=== PATIENT | female | born 1970 | race Asian ===

== ENCOUNTER 2016-09-04 23:18 | Inpatient (IN) | payer MEDICAID ==
[~2016-09-04] VITALS: Ht 167.6 cm; Wt 70.8 kg
[~2016-09-04 23:18] MED LIST: ASEN10TA8 SL
[2016-09-05] MEDS ORDERED: HALOPERIDOL 5 MG TABLET PO PRN (01:45)
[2016-09-05] MEDS ORDERED: ZOLPIDEM TARTRATE 10 MG TABLET PO PRN (01:45)
[2016-09-05 02:59] VITALS: BP 100/72
[2016-09-05 03:12] VITALS: BP 100/72
[2016-09-05] MEDS ORDERED: INFLUENZA VIRUS VACCINE QVS 2016-17 (3YR+)/PF 60 MCG/0.5 ML SYRINGE IM ONE (03:15)
[2016-09-05 06:47] LABS: GLUCOSE,POINT OF CARE 110 MG/DL (70-110)
[2016-09-05 08:53] VITALS: BP 136/76
[2016-09-05] MEDS: LORazepam 2 MG TABLET PO PRN ×2 (08:54→19:05)
[2016-09-05] MEDS ORDERED: PETROLATUM,WHITE 71 GM JELLY TP PRN (09:30)
[2016-09-05] MEDS ORDERED: ACETAMINOPHEN 325 MG TABLET PO PRN (09:30)
[2016-09-05] MEDS ORDERED: CloNIDine HCL 0.1 MG TABLET PO PRN (09:30)
[2016-09-05] MEDS ORDERED: BACITRACIN 28.4 GM OINTMENT TP PRN (09:30)
[2016-09-05] MEDS ORDERED: ALBUTEROL SULFATE HFA 90 MCG/PUFF 8 GM INHALER IH PRN (09:30)
[2016-09-05] MEDS ORDERED: ONDANSETRON HCL 4 MG TABLET PO PRN (09:30)
[2016-09-05] MEDS ORDERED: LOPERAMIDE HCL 2 MG CAPSULE PO PRN (09:30)
[2016-09-05 16:40] VITALS: BP 102/72
[2016-09-06 03:21] VITALS: BP 112/71
[2016-09-06 07:01] VITALS: BP 112/71
[2016-09-06] MEDS: ASENAPINE 10 MG SUBLINGUAL TABLET SL SCH ×2 (08:16→16:12)
[2016-09-06 08:26] VITALS: BP 104/62
[2016-09-06 08:29] LABS: BASOPHILS % (AUTO) 0.3 % (0.0-2.0); EOSINOPHILS % (AUTO) 1.6 % (1.0-6.0); HEMATOCRIT 42.5 % (36-46); HEMOGLOBIN 13.9 g/dL (12.0-16.0); LYMPHOCYTES # (AUTO) 2.9 K/uL (1.0-4.8); LYMPHOCYTES % (AUTO) 27.8 % (22.0-44.0); MEAN CORPUSCULAR HEMOGLOBIN 28.5 pg (26.0-34.0); MEAN CORPUSCULAR HGB CONC 32.7 G/dL (31.0-37.0); MEAN CORPUSCULAR VOLUME 87 fL (80-100); MONOCYTES # (AUTO) 0.5 K/uL (0.1-1.0); MONOCYTES % (AUTO) 4.6 % (2.0-9.0); NEUTROPHILS # (AUTO) 6.9 K/uL (1.8-7.7); NEUTROPHILS % (AUTO) 65.7 % (40.0-70.0); PLATELET COUNT (AUTO) 469 K/uL (150-450); RED BLOOD CELL COUNT(AUTO) 4.88 MIL/uL (4.00-5.20); RED CELL DISTRIBUTION WIDTH 12.7 % (11.5-14.5); WHITE BLOOD COUNT (AUTO) 10.5 K/uL (4.5-11.0)
[2016-09-06 08:51] LABS: HEMOGLOBIN A1C 6.1 % (4.5-6.2)
[2016-09-06 08:57] LABS: ALANINE AMINOTRANSFERASE 21 U/L (12-78); ALBUMIN 3.7 g/dL (3.4-5.0); ANION GAP 8 mmol/L (8-16); ASPARTATE AMINOTRANSFERASE 20 U/L (15-37); BILIRUBIN,TOTAL 0.3 mg/dL (0.1-1.0); CALCIUM, TOTAL 10.1 mg/dL (8.8-10.5); CARBON DIOXIDE 28 mmol/L (22-29); CHLORIDE 104 mmol/L (98-107); CREATININE 0.68 mg/dL (0.60-1.30); GLOMERULAR FILTR. RATE CALC > 60 mL/min (>60); POTASSIUM 4.5 mmol/L (3.5-5.1); SODIUM SERUM 140 mmol/L (136-145); THYROID STIMULATING HORMONE 0.36 uIU/mL (0.36-3.74); TOTAL PROTEIN, SERUM 7.6 g/dL (6.4-8.2); UREA NITROGEN, BLOOD 17 mg/dL (7-18)
[2016-09-06 16:16] VITALS: BP 117/68
[2016-09-06] MEDS: LORazepam 2 MG TABLET PO PRN (16:23)
[2016-09-07 01:20] VITALS: BP 116/72
[2016-09-07] MEDS: MAG HYDROX/AL HYDROX/SIMETH ES 30 ML SUSPENSION UDCUP PO PRN (05:38)
[2016-09-07] MEDS: ASENAPINE 10 MG SUBLINGUAL TABLET SL SCH ×2 (08:09→17:30)
[2016-09-07 08:48] VITALS: BP 113/72
[2016-09-07] MEDS: LORazepam 2 MG TABLET PO PRN (10:38)
[2016-09-07 16:16] VITALS: BP 113/69
[2016-09-08 03:39] VITALS: BP 105/68
[2016-09-08] MEDS: MAG HYDROX/AL HYDROX/SIMETH ES 30 ML SUSPENSION UDCUP PO PRN (04:26)
[2016-09-08] MEDS: ASENAPINE 10 MG SUBLINGUAL TABLET SL SCH ×2 (08:02→17:40)
[2016-09-08] MEDS: LORazepam 2 MG TABLET PO PRN ×2 (08:35→20:04)
[2016-09-08 08:38] VITALS: BP 126/87
[2016-09-08] MEDS ORDERED: DiphenhydrAMINE HCL 50 MG/ML VIAL IM ONE (12:00)
[2016-09-08] MEDS ORDERED: LORazepam 2 MG/ML VIAL IM ONE (12:00)
[2016-09-08] MEDS ORDERED: HALOPERIDOL LACTATE 5 MG/ML VIAL IM ONE (12:00)
[2016-09-08 13:00] VITALS: BP 103/63
[2016-09-08 16:14] VITALS: BP 127/71
[2016-09-08] MEDS: DIVALPROEX SODIUM 500 MG ER TABLET PO SCH (20:08)
[2016-09-09 01:28] VITALS: BP 111/70
[2016-09-09 08:38] VITALS: BP 105/72
[2016-09-09] MEDS: ASENAPINE 10 MG SUBLINGUAL TABLET SL SCH ×2 (08:54→16:37)
[2016-09-09] MEDS: LORazepam 2 MG TABLET PO PRN ×2 (12:42→20:33)
[2016-09-09 16:00] VITALS: BP 102/68
[2016-09-09] MEDS: DIVALPROEX SODIUM 500 MG ER TABLET PO SCH (20:01)
[2016-09-10 05:47] VITALS: BP 110/70
[2016-09-10] MEDS: ASENAPINE 10 MG SUBLINGUAL TABLET SL SCH ×2 (08:09→16:34)
[2016-09-10] MEDS: LORazepam 2 MG TABLET PO PRN ×2 (08:09→23:07)
[2016-09-10 08:35] VITALS: BP 100/61
[2016-09-10 16:00] VITALS: BP 123/81
[2016-09-10] MEDS: DIVALPROEX SODIUM 500 MG ER TABLET PO SCH (20:37)
[2016-09-11] VITALS: BP 118/79
[2016-09-11] MEDS: IBUPROFEN 600 MG TABLET PO PRN (00:02)
[2016-09-11] MEDS: ASENAPINE 10 MG SUBLINGUAL TABLET SL SCH ×2 (08:22→16:07)
[2016-09-11] MEDS: LORazepam 2 MG TABLET PO PRN (08:22)
[2016-09-11 08:49] VITALS: BP 132/82
[2016-09-11 16:10] VITALS: BP 124/81
[2016-09-11] MEDS: DIVALPROEX SODIUM 500 MG ER TABLET PO SCH (20:12)
[2016-09-12] MEDS: MAG HYDROX/AL HYDROX/SIMETH ES 30 ML SUSPENSION UDCUP PO PRN (03:48)
[2016-09-12 06:57] VITALS: BP 125/76
[2016-09-12 08:20] LABS: BASOPHILS # (AUTO) 0.04 K/uL (0.00-0.20); BASOPHILS % (AUTO) 0.3 % (0.0-2.0); EOSINOPHILS # (AUTO) 0.14 K/uL (0.00-0.70); EOSINOPHILS % (AUTO) 1.07 % (1.0-6.0); HEMATOCRIT 41.5 % (36-46); HEMOGLOBIN 13.8 g/dL (12.0-16.0); LYMPHOCYTES # (AUTO) 3.3 K/uL (1.0-4.8); LYMPHOCYTES % (AUTO) 25.6 % (22.0-44.0); MEAN CORPUSCULAR HEMOGLOBIN 28.6 pg (26.0-34.0); MEAN CORPUSCULAR HGB CONC 33.1 G/dL (31.0-37.0); MEAN CORPUSCULAR VOLUME 86 fL (80-100); MONOCYTES # (AUTO) 0.6 K/uL (0.1-1.0); MONOCYTES % (AUTO) 4.3 % (2.0-9.0); NEUTROPHILS # (AUTO) 8.9 K/uL (1.8-7.7); NEUTROPHILS % (AUTO) 68.8 % (40.0-70.0); PLATELET COUNT (AUTO) 453 K/uL (150-450); RED BLOOD CELL COUNT(AUTO) 4.81 MIL/uL (4.00-5.20); RED CELL DISTRIBUTION WIDTH 12.5 % (11.5-14.5)
[2016-09-12 08:34] LABS: ALANINE AMINOTRANSFERASE 33 U/L (12-78); ALBUMIN 4.1 g/dL (3.4-5.0); ANION GAP 12 mmol/L (8-16); ASPARTATE AMINOTRANSFERASE 25 U/L (15-37); BILIRUBIN,TOTAL 0.4 mg/dL (0.1-1.0); CALCIUM, TOTAL 10.1 mg/dL (8.8-10.5); CARBON DIOXIDE 27 mmol/L (22-29); CHLORIDE 100 mmol/L (98-107); CREATININE 0.61 mg/dL (0.60-1.30); GLOMERULAR FILTR. RATE CALC > 60 mL/min (>60); POTASSIUM 4.2 mmol/L (3.5-5.1); SODIUM SERUM 139 mmol/L (136-145); TOTAL PROTEIN, SERUM 7.8 g/dL (6.4-8.2); UREA NITROGEN, BLOOD 17 mg/dL (7-18); VALPROIC ACID 33 mcg/mL (50-100)
[2016-09-12] MEDS: ASENAPINE 10 MG SUBLINGUAL TABLET SL SCH ×2 (08:34→16:01)
[2016-09-12] MEDS: LORazepam 2 MG TABLET PO PRN ×2 (08:34→20:54)
[2016-09-12 08:57] VITALS: BP 143/88
[2016-09-12 16:00] VITALS: BP 125/90
[2016-09-12] MEDS: BENZOCAINE/MENTHOL LOZENGE MM PRN (17:26)
[2016-09-13 07:15] VITALS: BP 118/88
[2016-09-13] MEDS: BENZOCAINE/MENTHOL LOZENGE MM PRN (07:19)
[2016-09-13] MEDS: ASENAPINE 10 MG SUBLINGUAL TABLET SL SCH ×2 (08:56→16:55)
[2016-09-13] MEDS: LORazepam 2 MG TABLET PO PRN ×2 (08:56→16:55)
[2016-09-13 08:57] VITALS: BP 128/71
[2016-09-13 16:25] VITALS: BP 100/70
[2016-09-14 03:23] VITALS: BP 104/76
[2016-09-14] MEDS: BENZOCAINE/MENTHOL LOZENGE MM PRN (04:43)
[2016-09-14 07:58] LABS: BASOPHILS % (AUTO) 0.4 % (0.0-2.0); EOSINOPHILS % (AUTO) 1.5 % (1.0-6.0); HEMATOCRIT 43.1 % (36-46); HEMOGLOBIN 14.1 g/dL (12.0-16.0); LYMPHOCYTES # (AUTO) 3.5 K/uL (1.0-4.8); LYMPHOCYTES % (AUTO) 28.1 % (22.0-44.0); MEAN CORPUSCULAR HEMOGLOBIN 28.6 pg (26.0-34.0); MEAN CORPUSCULAR HGB CONC 32.8 G/dL (31.0-37.0); MEAN CORPUSCULAR VOLUME 87 fL (80-100); MONOCYTES # (AUTO) 0.7 K/uL (0.1-1.0); MONOCYTES % (AUTO) 5.5 % (2.0-9.0); NEUTROPHILS # (AUTO) 8.1 K/uL (1.8-7.7); NEUTROPHILS % (AUTO) 64.5 % (40.0-70.0); PLATELET COUNT (AUTO) 448 K/uL (150-450); RED BLOOD CELL COUNT(AUTO) 4.94 MIL/uL (4.00-5.20); WHITE BLOOD COUNT (AUTO) 12.5 K/uL (4.5-11.0)
[2016-09-14 08:13] LABS: ALANINE AMINOTRANSFERASE 29 U/L (12-78); ALBUMIN 3.9 g/dL (3.4-5.0); ANION GAP 8 mmol/L (8-16); ASPARTATE AMINOTRANSFERASE 25 U/L (15-37); BILIRUBIN,TOTAL 0.6 mg/dL (0.1-1.0); CALCIUM, TOTAL 9.9 mg/dL (8.8-10.5); CARBON DIOXIDE 30 mmol/L (22-29); CHLORIDE 102 mmol/L (98-107); CREATININE 0.63 mg/dL (0.60-1.30); GLOMERULAR FILTR. RATE CALC > 60 mL/min (>60); POTASSIUM 4.9 mmol/L (3.5-5.1); SODIUM SERUM 140 mmol/L (136-145); TOTAL PROTEIN, SERUM 7.8 g/dL (6.4-8.2); UREA NITROGEN, BLOOD 18 mg/dL (7-18)
[2016-09-14] MEDS: ASENAPINE 10 MG SUBLINGUAL TABLET SL SCH ×2 (10:03→16:44)
[2016-09-14] MEDS: LORazepam 2 MG TABLET PO PRN ×2 (10:03→16:44)
[2016-09-14 10:16] VITALS: BP 119/77
[2016-09-14 16:27] VITALS: BP 120/86
[2016-09-14] MEDS ORDERED: DIVALPROEX SODIUM 500 MG ER TABLET PO SCH (21:00)
[2016-09-15 04:57] VITALS: BP 116/82
[2016-09-15] MEDS: BENZOCAINE/MENTHOL LOZENGE MM PRN (05:20)
[2016-09-15 08:24] VITALS: BP 110/79
[2016-09-15] MEDS: ASENAPINE 10 MG SUBLINGUAL TABLET SL SCH ×2 (08:27→16:13)
[2016-09-15] MEDS: LORazepam 2 MG TABLET PO PRN ×2 (08:27→20:19)
[2016-09-15 16:13] VITALS: BP 116/73
[2016-09-15] MEDS ORDERED: DIVALPROEX SODIUM 500 MG ER TABLET PO SCH (21:00)
[2016-09-16 03:02] VITALS: BP 137/88
[2016-09-16 08:12] VITALS: BP 132/80
[2016-09-16] MEDS: ASENAPINE 10 MG SUBLINGUAL TABLET SL SCH ×2 (08:25→16:27)
[2016-09-16] MEDS: LORazepam 2 MG TABLET PO PRN ×2 (08:25→18:51)
[2016-09-16 08:28] LABS: HEMATOCRIT 41.9 % (36-46); HEMOGLOBIN 13.7 g/dL (12.0-16.0); MEAN CORPUSCULAR HEMOGLOBIN 28.4 pg (26.0-34.0); MEAN CORPUSCULAR HGB CONC 32.7 G/dL (31.0-37.0); MEAN CORPUSCULAR VOLUME 87 fL (80-100); PLATELET COUNT (AUTO) 432 K/uL (150-450); RED BLOOD CELL COUNT(AUTO) 4.83 MIL/uL (4.00-5.20); WHITE BLOOD COUNT (AUTO) 11.6 K/uL (4.5-11.0)
[2016-09-16 08:48] LABS: ANION GAP 7 mmol/L (8-16); CALCIUM, TOTAL 9.9 mg/dL (8.8-10.5); CARBON DIOXIDE 29 mmol/L (22-29); CHLORIDE 103 mmol/L (98-107); CREATININE 0.58 mg/dL (0.60-1.30); GLOMERULAR FILTR. RATE CALC > 60 mL/min (>60); POTASSIUM 4.3 mmol/L (3.5-5.1); SODIUM SERUM 139 mmol/L (136-145); UREA NITROGEN, BLOOD 16 mg/dL (7-18)
[2016-09-16 09:17] LABS: VALPROIC ACID < 3 mcg/mL (50-100)
[2016-09-16 09:48] LABS: BAND NEUTROPHILS % (MANUAL) 1 % (1-5); LYMPHOCYTES % (MANUAL) 22 % (22-44); TOTAL CELLS COUNTED 100
[2016-09-16 09:49] LABS: RBC MORPHOLOGY COMMENT NORMAL RBC MORPH
[2016-09-16 16:33] VITALS: BP 134/82
[2016-09-16] MEDS: VALPROIC ACID 250 MG/5 ML SYRUP UDCUP PO SCH (21:00)
[2016-09-16] MEDS: BENZOCAINE/MENTHOL LOZENGE MM PRN (21:17)
[2016-09-17 03:20] VITALS: BP 139/87
[2016-09-17] MEDS: BENZOCAINE/MENTHOL LOZENGE MM PRN (03:28)
[2016-09-17] MEDS: LORazepam 2 MG TABLET PO PRN ×2 (08:04→18:44)
[2016-09-17] MEDS: ASENAPINE 10 MG SUBLINGUAL TABLET SL SCH ×2 (08:04→16:42)
[2016-09-17 08:43] VITALS: BP 130/79
[2016-09-17 17:04] VITALS: BP 125/83
[2016-09-17] MEDS: VALPROIC ACID 250 MG/5 ML SYRUP UDCUP PO SCH (21:00)
[2016-09-18 05:55] VITALS: BP 116/79
[2016-09-18] MEDS: LORazepam 2 MG TABLET PO PRN ×2 (08:10→16:57)
[2016-09-18] MEDS: ASENAPINE 10 MG SUBLINGUAL TABLET SL SCH ×2 (08:10→16:29)
[2016-09-18 08:19] VITALS: BP 151/88
[2016-09-18 16:28] VITALS: BP 106/72
[2016-09-18 18:20] VITALS: BP 125/77
[2016-09-18] MEDS: IBUPROFEN 600 MG TABLET PO PRN (18:20)
[2016-09-18] MEDS: VALPROIC ACID 250 MG/5 ML SYRUP UDCUP PO SCH (21:00)
[2016-09-19] MEDS: BENZOCAINE/MENTHOL LOZENGE MM PRN (02:54)
[2016-09-19 03:03] VITALS: BP 120/89
[2016-09-19] MEDS: MAG HYDROX/AL HYDROX/SIMETH ES 30 ML SUSPENSION UDCUP PO PRN (03:26)
[2016-09-19] MEDS: LORazepam 2 MG TABLET PO PRN ×3 (08:32→22:37)
[2016-09-19] MEDS: ASENAPINE 10 MG SUBLINGUAL TABLET SL SCH ×2 (08:38→16:29)
[2016-09-19 16:00] VITALS: BP 137/98
[2016-09-19] MEDS ORDERED: LORazepam 2 MG/ML VIAL IM PRN (19:30)
[2016-09-20 00:01] VITALS: BP 130/78
[2016-09-20] MEDS: IBUPROFEN 600 MG TABLET PO PRN ×2 (00:06→21:31)
[2016-09-20 08:30] VITALS: BP 124/74
[2016-09-20] MEDS: LORazepam 1 MG TABLET PO SCH ×3 (08:40→17:54)
[2016-09-20] MEDS: ASENAPINE 10 MG SUBLINGUAL TABLET SL SCH ×2 (08:40→16:35)
[2016-09-20 21:30] VITALS: BP 128/68
[2016-09-20] MEDS: LORazepam 2 MG TABLET PO PRN (21:54)
[2016-09-21] MEDS: BENZOCAINE/MENTHOL LOZENGE MM PRN (05:55)
[2016-09-21 06:10] VITALS: BP 124/78
[2016-09-21] MEDS: LORazepam 1 MG TABLET PO SCH ×3 (08:05→17:02)
[2016-09-21] MEDS: ASENAPINE 10 MG SUBLINGUAL TABLET SL SCH ×2 (08:05→16:22)
[2016-09-21 08:35] VITALS: BP 130/90
[2016-09-21 15:55] VITALS: BP 128/66
[2016-09-21] MEDS: IBUPROFEN 600 MG TABLET PO PRN (15:58)
[2016-09-21 16:25] VITALS: BP 114/75
[2016-09-22] MEDS: BENZOCAINE/MENTHOL LOZENGE MM PRN ×2 (01:53→16:48)
[2016-09-22 01:54] VITALS: BP 137/76
[2016-09-22] MEDS: MAGNESIUM HYDROXIDE SUSPENSION 30 ML UDCUP PO PRN (06:04)
[2016-09-22] MEDS: ASENAPINE 10 MG SUBLINGUAL TABLET SL SCH ×2 (08:15→16:10)
[2016-09-22] MEDS: LORazepam 1 MG TABLET PO SCH ×3 (08:15→16:19)
[2016-09-22 09:02] VITALS: BP 133/90
[2016-09-22 16:10] VITALS: BP 115/79
[2016-09-22] MEDS: IBUPROFEN 600 MG TABLET PO PRN (16:10)
[2016-09-22] MEDS: LORazepam 2 MG TABLET PO PRN (21:00)
[2016-09-23 04:13] VITALS: BP 109/71
[2016-09-23] MEDS: MAG HYDROX/AL HYDROX/SIMETH ES 30 ML SUSPENSION UDCUP PO PRN (05:40)
[2016-09-23 08:14] VITALS: BP 112/65
[2016-09-23] MEDS: LORazepam 1 MG TABLET PO SCH ×3 (08:44→16:33)
[2016-09-23] MEDS: ASENAPINE 10 MG SUBLINGUAL TABLET SL SCH ×2 (08:44→16:33)
[2016-09-23] MEDS: LORazepam 2 MG TABLET PO PRN (10:08)
[2016-09-23] MEDS: IBUPROFEN 600 MG TABLET PO PRN (10:10)
[2016-09-23 16:16] VITALS: BP 136/80
[2016-09-24] MEDS: BENZOCAINE/MENTHOL LOZENGE MM PRN (00:12)
[2016-09-24 02:31] VITALS: BP 116/71
[2016-09-24 08:23] VITALS: BP 128/77
[2016-09-24] MEDS: ASENAPINE 10 MG SUBLINGUAL TABLET SL SCH ×2 (09:00→16:35)
[2016-09-24] MEDS: LORazepam 1 MG TABLET PO SCH ×3 (09:01→16:35)
[2016-09-24] MEDS ORDERED: LORA1TAB3 PO (10:54)
[2016-09-24 16:00] VITALS: BP 118/75
[2016-09-25] MEDS: BENZOCAINE/MENTHOL LOZENGE MM PRN ×2 (04:29→23:15)
[2016-09-25 05:20] VITALS: BP 119/77
[2016-09-25] MEDS: LORazepam 1 MG TABLET PO SCH ×3 (08:28→16:19)
[2016-09-25] MEDS: ASENAPINE 10 MG SUBLINGUAL TABLET SL SCH ×2 (08:28→16:19)
[2016-09-25 08:38] VITALS: BP 126/93
[2016-09-25 16:09] VITALS: BP 118/80
[2016-09-25] MEDS: MAG HYDROX/AL HYDROX/SIMETH ES 30 ML SUSPENSION UDCUP PO PRN (22:48)
[2016-09-26 01:49] VITALS: BP 149/68
[2016-09-26] MEDS: LORazepam 2 MG TABLET PO PRN (01:49)
[2016-09-26] MEDS: ASENAPINE 10 MG SUBLINGUAL TABLET SL SCH ×2 (08:06→16:03)
[2016-09-26] MEDS: LORazepam 1 MG TABLET PO SCH ×3 (08:06→16:13)
[2016-09-26 08:30] VITALS: BP 115/77
[2016-09-26 16:16] VITALS: BP 114/72
[2016-09-26] MEDS: IBUPROFEN 600 MG TABLET PO PRN (20:37)
[2016-09-26 20:38] VITALS: BP 127/80
[2016-09-26] MEDS ORDERED: LORazepam 2 MG/ML VIAL IM ONE (21:00)
[2016-09-26] MEDS ORDERED: HALOPERIDOL LACTATE 5 MG/ML VIAL IM ONE (21:00)
[2016-09-26] MEDS ORDERED: DiphenhydrAMINE HCL 50 MG/ML VIAL IM ONE (21:00)
[2016-09-27] MEDS: BENZOCAINE/MENTHOL LOZENGE MM PRN ×2 (06:36→14:32)
[2016-09-27] MEDS: LORazepam 1 MG TABLET PO SCH ×3 (08:29→16:33)
[2016-09-27] MEDS: ASENAPINE 10 MG SUBLINGUAL TABLET SL SCH ×2 (08:29→16:34)
[2016-09-27 16:08] VITALS: BP 112/75
[2016-09-27 21:44] VITALS: BP 126/64
[2016-09-27] MEDS: IBUPROFEN 600 MG TABLET PO PRN (21:45)
[2016-09-28] MEDS: MAG HYDROX/AL HYDROX/SIMETH ES 30 ML SUSPENSION UDCUP PO PRN (03:41)
[2016-09-28 03:49] VITALS: BP 107/73
[2016-09-28] MEDS: ASENAPINE 10 MG SUBLINGUAL TABLET SL SCH ×2 (08:01→16:10)
[2016-09-28] MEDS: LORazepam 1 MG TABLET PO SCH ×3 (08:01→16:10)
[2016-09-28 14:15] VITALS: BP 120/74
[2016-09-28] MEDS: IBUPROFEN 600 MG TABLET PO PRN (14:15)
[2016-09-28 16:31] VITALS: BP 126/66
[2016-09-28] MEDS: LORazepam 2 MG TABLET PO PRN (17:15)
[2016-09-29 04:28] VITALS: BP 101/66
[2016-09-29 08:30] VITALS: BP 131/73
[2016-09-29] MEDS: LORazepam 2 MG TABLET PO PRN (08:58)
[2016-09-29] MEDS: LORazepam 1 MG TABLET PO SCH ×3 (10:06→17:10)
[2016-09-29] MEDS: ASENAPINE 10 MG SUBLINGUAL TABLET SL SCH ×2 (10:06→17:10)
[2016-09-29 16:00] VITALS: BP 127/71
[2016-09-30] MEDS: BENZOCAINE/MENTHOL LOZENGE MM PRN (01:53)
[2016-09-30 01:54] VITALS: BP 103/68
[2016-09-30] MEDS: MAG HYDROX/AL HYDROX/SIMETH ES 30 ML SUSPENSION UDCUP PO PRN (05:18)
[2016-09-30] MEDS: LORazepam 1 MG TABLET PO SCH ×3 (08:30→16:28)
[2016-09-30] MEDS: ASENAPINE 10 MG SUBLINGUAL TABLET SL SCH ×2 (08:30→16:28)
[2016-09-30 08:39] VITALS: BP 118/77
[2016-09-30 16:16] VITALS: BP 125/79
[2016-09-30] MEDS: IBUPROFEN 600 MG TABLET PO PRN (21:13)
[2016-10-01] MEDS ORDERED: DiphenhydrAMINE HCL 50 MG/ML VIAL IM ONE (02:00)
[2016-10-01] MEDS ORDERED: LORazepam 2 MG/ML VIAL IM ONE (02:00)
[2016-10-01] MEDS ORDERED: HALOPERIDOL LACTATE 5 MG/ML VIAL IM ONE (02:00)
[2016-10-01] MEDS: BENZOCAINE/MENTHOL LOZENGE MM PRN (07:08)
[2016-10-01] MEDS: LORazepam 1 MG TABLET PO SCH ×3 (08:26→16:38)
[2016-10-01] MEDS: ASENAPINE 10 MG SUBLINGUAL TABLET SL SCH ×2 (08:26→16:38)
[2016-10-01 10:00] VITALS: BP 118/72
[2016-10-01 16:10] VITALS: BP 118/74
[2016-10-01] MEDS: LamoTRIgine 25 MG TABLET PO SCH (16:38)
[2016-10-02 00:50] VITALS: BP 105/70
[2016-10-02] MEDS: BENZOCAINE/MENTHOL LOZENGE MM PRN ×2 (02:56→18:06)
[2016-10-02] MEDS: ASENAPINE 10 MG SUBLINGUAL TABLET SL SCH ×2 (08:08→16:16)
[2016-10-02] MEDS: LamoTRIgine 25 MG TABLET PO SCH (08:08)
[2016-10-02] MEDS: LORazepam 1 MG TABLET PO SCH ×3 (08:08→16:16)
[2016-10-02 08:39] VITALS: BP 122/80
[2016-10-02 16:25] VITALS: BP 111/74
[2016-10-03] MEDS: IBUPROFEN 600 MG TABLET PO PRN ×2 (00:20→16:02)
[2016-10-03 00:21] VITALS: BP 106/64
[2016-10-03] MEDS: MAG HYDROX/AL HYDROX/SIMETH ES 30 ML SUSPENSION UDCUP PO PRN (01:26)
[2016-10-03] MEDS: MAGNESIUM HYDROXIDE SUSPENSION 30 ML UDCUP PO PRN (02:30)
[2016-10-03 08:19] VITALS: BP 136/91
[2016-10-03] MEDS: LamoTRIgine 25 MG TABLET PO SCH (09:59)
[2016-10-03] MEDS: ASENAPINE 10 MG SUBLINGUAL TABLET SL SCH ×2 (09:59→16:02)
[2016-10-03] MEDS: LORazepam 1 MG TABLET PO SCH ×3 (09:59→16:02)
[2016-10-03 16:02] VITALS: BP 120/78
[2016-10-03 16:03] VITALS: BP 109/75
[2016-10-03] MEDS: LORazepam 2 MG TABLET PO PRN (16:46)
[2016-10-04] MEDS: BENZOCAINE/MENTHOL LOZENGE MM PRN (02:55)
[2016-10-04] MEDS: MAG HYDROX/AL HYDROX/SIMETH ES 30 ML SUSPENSION UDCUP PO PRN (03:09)
[2016-10-04 06:00] VITALS: BP 109/66
[2016-10-04 08:17] VITALS: BP 123/80
[2016-10-04] MEDS: LamoTRIgine 25 MG TABLET PO SCH (08:24)
[2016-10-04] MEDS: ASENAPINE 10 MG SUBLINGUAL TABLET SL SCH ×2 (08:24→16:24)
[2016-10-04] MEDS: LORazepam 1 MG TABLET PO SCH ×3 (08:24→16:47)
[2016-10-04 16:17] VITALS: BP 126/71
[2016-10-05 00:35] VITALS: BP 120/73
[2016-10-05] MEDS: ASENAPINE 10 MG SUBLINGUAL TABLET SL SCH ×2 (08:29→16:05)
[2016-10-05] MEDS: LamoTRIgine 25 MG TABLET PO SCH (08:29)
[2016-10-05] MEDS: LORazepam 1 MG TABLET PO SCH ×3 (08:29→16:53)
[2016-10-05 08:31] VITALS: BP 119/70
[2016-10-05 16:10] VITALS: BP 121/73
[2016-10-05] MEDS: LORazepam 2 MG TABLET PO PRN (20:17)
[2016-10-06 04:18] VITALS: BP 110/65
[2016-10-06] MEDS: LamoTRIgine 25 MG TABLET PO SCH (08:17)
[2016-10-06] MEDS: ASENAPINE 10 MG SUBLINGUAL TABLET SL SCH ×2 (08:17→16:18)
[2016-10-06] MEDS: LORazepam 1 MG TABLET PO SCH ×3 (08:17→16:18)
[2016-10-06 08:26] VITALS: BP 111/65
[2016-10-06 16:00] VITALS: BP 104/68
[2016-10-06] MEDS: DICLOFENAC SODIUM 1% 100 GM GEL [2GM] TP SCH (16:18)
[2016-10-07] MEDS: BENZOCAINE/MENTHOL LOZENGE MM PRN ×2 (01:38→02:05)
[2016-10-07 07:25] VITALS: BP 110/72
[2016-10-07 08:17] VITALS: BP 126/84
[2016-10-07] MEDS: ASENAPINE 10 MG SUBLINGUAL TABLET SL SCH ×2 (08:40→16:38)
[2016-10-07] MEDS: LamoTRIgine 100 MG TABLET PO SCH (08:40)
[2016-10-07] MEDS: DICLOFENAC SODIUM 1% 100 GM GEL [2GM] TP SCH ×2 (08:40→16:38)
[2016-10-07] MEDS: LORazepam 1 MG TABLET PO SCH ×3 (08:41→16:38)
[2016-10-07 16:24] VITALS: BP 130/78
[2016-10-08] MEDS: BENZOCAINE/MENTHOL LOZENGE MM PRN (00:32)
[2016-10-08] MEDS: IBUPROFEN 600 MG TABLET PO PRN (01:12)
[2016-10-08 01:13] VITALS: BP 133/61
[2016-10-08 08:00] VITALS: BP 134/79
[2016-10-08] MEDS: LORazepam 1 MG TABLET PO SCH ×3 (08:31→16:18)
[2016-10-08] MEDS: DICLOFENAC SODIUM 1% 100 GM GEL [2GM] TP SCH ×2 (08:31→16:51)
[2016-10-08] MEDS: LamoTRIgine 100 MG TABLET PO SCH (08:31)
[2016-10-08] MEDS: ASENAPINE 10 MG SUBLINGUAL TABLET SL SCH ×2 (08:32→16:18)
[2016-10-08 16:02] VITALS: BP 100/66
[2016-10-08 16:24] VITALS: BP 116/68
[2016-10-08 17:25] VITALS: BP 115/65
[2016-10-08] MEDS: LORazepam 2 MG TABLET PO PRN (17:26)
[2016-10-09 06:39] VITALS: BP 110/72
[2016-10-09] MEDS: DICLOFENAC SODIUM 1% 100 GM GEL [2GM] TP SCH ×2 (08:18→17:19)
[2016-10-09] MEDS: LORazepam 1 MG TABLET PO SCH ×3 (08:18→17:18)
[2016-10-09] MEDS: LamoTRIgine 100 MG TABLET PO SCH (08:18)
[2016-10-09] MEDS: ASENAPINE 10 MG SUBLINGUAL TABLET SL SCH ×2 (08:18→17:18)
[2016-10-09 08:55] VITALS: BP 107/74
[2016-10-09 16:22] VITALS: BP 110/69
[2016-10-10] MEDS: MAG HYDROX/AL HYDROX/SIMETH ES 30 ML SUSPENSION UDCUP PO PRN (01:59)
[2016-10-10 05:22] VITALS: BP 106/73
[2016-10-10 08:38] VITALS: BP 119/74
[2016-10-10] MEDS: ASENAPINE 10 MG SUBLINGUAL TABLET SL SCH ×2 (09:45→16:04)
[2016-10-10] MEDS: DICLOFENAC SODIUM 1% 100 GM GEL [2GM] TP SCH ×2 (09:46→16:04)
[2016-10-10] MEDS: LORazepam 1 MG TABLET PO SCH ×3 (09:46→17:21)
[2016-10-10] MEDS: LamoTRIgine 100 MG TABLET PO SCH (09:46)
[2016-10-10 16:39] VITALS: BP 124/72
[2016-10-11 01:41] VITALS: BP 118/78
[2016-10-11] MEDS: MAG HYDROX/AL HYDROX/SIMETH ES 30 ML SUSPENSION UDCUP PO PRN (02:13)
[2016-10-11] MEDS: LORazepam 2 MG TABLET PO PRN (06:40)
[2016-10-11 08:11] VITALS: BP 126/76
[2016-10-11] MEDS: DICLOFENAC SODIUM 1% 100 GM GEL [2GM] TP SCH ×2 (09:35→16:46)
[2016-10-11] MEDS: ASENAPINE 10 MG SUBLINGUAL TABLET SL SCH ×2 (09:35→16:05)
[2016-10-11] MEDS: LORazepam 1 MG TABLET PO SCH ×3 (09:35→16:59)
[2016-10-11] MEDS: LamoTRIgine 100 MG TABLET PO SCH (09:35)
[2016-10-11 16:16] VITALS: BP 110/64
[2016-10-12] MEDS: IBUPROFEN 600 MG TABLET PO PRN (01:34)
[2016-10-12] MEDS: BENZOCAINE/MENTHOL LOZENGE MM PRN ×2 (05:28→14:36)
[2016-10-12] MEDS: LamoTRIgine 100 MG TABLET PO SCH (08:10)
[2016-10-12] MEDS: ASENAPINE 10 MG SUBLINGUAL TABLET SL SCH ×2 (08:10→16:02)
[2016-10-12] MEDS: LORazepam 1 MG TABLET PO SCH ×3 (08:11→16:02)
[2016-10-12] MEDS: DICLOFENAC SODIUM 1% 100 GM GEL [2GM] TP SCH ×2 (08:11→16:23)
[2016-10-12 08:17] VITALS: BP 113/63
[2016-10-12 16:00] VITALS: BP 113/82
[2016-10-13] MEDS: LORazepam 1 MG TABLET PO SCH ×3 (08:15→17:01)
[2016-10-13] MEDS: ASENAPINE 10 MG SUBLINGUAL TABLET SL SCH ×2 (08:15→16:04)
[2016-10-13] MEDS: LamoTRIgine 100 MG TABLET PO SCH (08:15)
[2016-10-13] MEDS: DICLOFENAC SODIUM 1% 100 GM GEL [2GM] TP SCH ×2 (08:16→16:04)
[2016-10-13 08:55] VITALS: BP 126/76
[2016-10-13 16:10] VITALS: BP 122/86
[2016-10-14] MEDS: BENZOCAINE/MENTHOL LOZENGE MM PRN (03:34)
[2016-10-14 05:38] VITALS: BP 105/68
[2016-10-14 08:28] VITALS: BP 130/81
[2016-10-14] MEDS: ASENAPINE 10 MG SUBLINGUAL TABLET SL SCH ×2 (08:39→17:32)
[2016-10-14] MEDS: DICLOFENAC SODIUM 1% 100 GM GEL [2GM] TP SCH ×2 (08:39→17:34)
[2016-10-14] MEDS ORDERED: LamoTRIgine 100 MG TABLET PO SCH (09:00)
[2016-10-14 16:00] VITALS: BP 151/83
[2016-10-14] MEDS: IBUPROFEN 600 MG TABLET PO PRN (16:06)
[2016-10-14 17:15] VITALS: BP 129/86
[2016-10-15] VITALS (9 sets, daily range): BP systolic 111–164; BP diastolic 60–114
[2016-10-15] MEDS: MAG HYDROX/AL HYDROX/SIMETH ES 30 ML SUSPENSION UDCUP PO PRN (03:28)
[2016-10-15] MEDS ORDERED: LORazepam 2 MG TABLET PO PRN (07:30)
[2016-10-15] MEDS ORDERED: LamoTRIgine 100 MG TABLET PO SCH (09:00)
[2016-10-15] MEDS: ASENAPINE 10 MG SUBLINGUAL TABLET SL SCH ×2 (09:00→17:52)
[2016-10-15] MEDS: DICLOFENAC SODIUM 1% 100 GM GEL [2GM] TP SCH ×2 (09:00→17:52)
[2016-10-15] MEDS ORDERED: CloNIDine HCL 0.1 MG TABLET PO PRN (10:15)
[2016-10-15] MEDS: LORazepam 1 MG TABLET PO SCH (17:52)
[2016-10-16] MEDS: BENZOCAINE/MENTHOL LOZENGE MM PRN (03:40)
[2016-10-16 06:31] VITALS: BP 135/72
[2016-10-16 08:19] VITALS: BP 108/67
[2016-10-16] MEDS: LORazepam 1 MG TABLET PO SCH ×3 (08:58→16:22)
[2016-10-16] MEDS: ASENAPINE 10 MG SUBLINGUAL TABLET SL SCH ×2 (08:58→16:22)
[2016-10-16] MEDS: DICLOFENAC SODIUM 1% 100 GM GEL [2GM] TP SCH ×2 (08:58→16:22)
[2016-10-16 16:18] VITALS: BP 109/65
[2016-10-16] MEDS: IBUPROFEN 600 MG TABLET PO PRN (16:24)
[2016-10-17 05:55] VITALS: BP 102/71
[2016-10-17 08:10] VITALS: BP 123/77
[2016-10-17] MEDS: ASENAPINE 10 MG SUBLINGUAL TABLET SL SCH ×2 (08:28→16:12)
[2016-10-17] MEDS: LORazepam 1 MG TABLET PO SCH ×2 (08:28→21:03)
[2016-10-17] MEDS: DICLOFENAC SODIUM 1% 100 GM GEL [2GM] TP SCH ×2 (08:30→16:15)
[2016-10-17 16:00] VITALS: BP 102/65
[2016-10-17] MEDS: LORazepam 0.5 MG TABLET PO SCH (17:00)
[2016-10-18 03:16] VITALS: BP 113/71
[2016-10-18] MEDS: MAG HYDROX/AL HYDROX/SIMETH ES 30 ML SUSPENSION UDCUP PO PRN (05:25)
[2016-10-18 08:22] VITALS: BP 100/69
[2016-10-18] MEDS: DICLOFENAC SODIUM 1% 100 GM GEL [2GM] TP SCH ×2 (08:36→16:23)
[2016-10-18] MEDS: ASENAPINE 10 MG SUBLINGUAL TABLET SL SCH ×2 (08:36→16:22)
[2016-10-18] MEDS: LORazepam 1 MG TABLET PO SCH ×2 (08:36→20:07)
[2016-10-18 08:49] LABS: HEMATOCRIT 41.8 % (36-46); HEMOGLOBIN 13.5 g/dL (12.0-16.0); MEAN CORPUSCULAR HEMOGLOBIN 28.5 pg (26.0-34.0); MEAN CORPUSCULAR HGB CONC 32.4 G/dL (31.0-37.0); MEAN CORPUSCULAR VOLUME 88 fL (80-100); PLATELET COUNT (AUTO) 386 K/uL (150-450); RED BLOOD CELL COUNT(AUTO) 4.74 MIL/uL (4.00-5.20); RED CELL DISTRIBUTION WIDTH 12.8 % (11.5-14.5)
[2016-10-18 09:10] LABS: ANION GAP 9 mmol/L (8-16); CALCIUM, TOTAL 9.6 mg/dL (8.8-10.5); CARBON DIOXIDE 29 mmol/L (22-29); CHLORIDE 103 mmol/L (98-107); CREATININE 0.59 mg/dL (0.60-1.30); GLOMERULAR FILTR. RATE CALC > 60 mL/min (>60); PHOSPHORUS 3.6 mg/dL (2.5-4.9); POTASSIUM 3.9 mmol/L (3.5-5.1); SODIUM SERUM 141 mmol/L (136-145); UREA NITROGEN, BLOOD 21 mg/dL (7-18)
[2016-10-18 09:52] LABS: BAND NEUTROPHILS % (MANUAL) 2 % (1-5); LYMPHOCYTES % (MANUAL) 36 % (22-44); TOTAL CELLS COUNTED 100
[2016-10-18 16:00] VITALS: BP 113/72
[2016-10-18] MEDS: LORazepam 0.5 MG TABLET PO SCH (16:22)
[2016-10-18 19:20] VITALS: BP 125/78
[2016-10-18] MEDS: IBUPROFEN 600 MG TABLET PO PRN (19:20)
[2016-10-19 05:45] VITALS: BP 108/64
[2016-10-19] MEDS: LORazepam 1 MG TABLET PO SCH ×2 (08:23→20:21)
[2016-10-19] MEDS: ASENAPINE 10 MG SUBLINGUAL TABLET SL SCH ×2 (08:23→16:34)
[2016-10-19] MEDS: DICLOFENAC SODIUM 1% 100 GM GEL [2GM] TP SCH ×2 (08:23→16:49)
[2016-10-19 09:30] VITALS: BP 109/80
[2016-10-19] MEDS: LORazepam 0.5 MG TABLET PO SCH (16:34)
[2016-10-19 16:35] VITALS: BP 119/76
[2016-10-19] MEDS: IBUPROFEN 600 MG TABLET PO PRN (18:47)
[2016-10-20 02:33] VITALS: BP 105/77
[2016-10-20 08:54] VITALS: BP 102/74
[2016-10-20] MEDS: DICLOFENAC SODIUM 1% 100 GM GEL [2GM] TP SCH ×2 (08:56→16:15)
[2016-10-20] MEDS: LORazepam 1 MG TABLET PO SCH ×2 (08:57→20:00)
[2016-10-20] MEDS: ASENAPINE 10 MG SUBLINGUAL TABLET SL SCH ×2 (08:57→16:08)
[2016-10-20 16:00] VITALS: BP 129/76
[2016-10-20] MEDS: LORazepam 0.5 MG TABLET PO SCH (16:35)
[2016-10-21 02:44] VITALS: BP 117/74
[2016-10-21] MEDS: MAG HYDROX/AL HYDROX/SIMETH ES 30 ML SUSPENSION UDCUP PO PRN (05:32)
[2016-10-21] MEDS ORDERED: LORA1TAB3 PO (08:18)
[2016-10-21] MEDS ORDERED: LORA0.5T2 PO (08:19)
[2016-10-21] MEDS: LORazepam 1 MG TABLET PO SCH (08:55)
[2016-10-21] MEDS: ASENAPINE 10 MG SUBLINGUAL TABLET SL SCH (08:55)
[2016-10-21] MEDS: DICLOFENAC SODIUM 1% 100 GM GEL [2GM] TP SCH (08:55)
[2016-10-21 09:25] VITALS: BP 120/71
== END 2016-10-21 13:20 | disposition home or self-care (01) | DRG 750 ==
LOC: B2S 09-05 01:42 → B3A 09-05 08:25
PROVIDERS: ADMIT Psychiatry & Neurology Psychiatry; ATTEND Psychiatry & Neurology Psychiatry
DX: F25.0 Schizoaffective disorder, bipolar type (principal); Z91.19 Patient's noncompliance with other medical treatment and regimen; I10 Essential (primary) hypertension; R45.84 Anhedonia; R51 Headache; M54.5 Low back pain; G47.00 Insomnia, unspecified; E07.9 Disorder of thyroid, unspecified; Z53.29 Procedure and treatment not carried out because of patient's decision for other reasons; K59.00 Constipation, unspecified; J02.9 Acute pharyngitis, unspecified; D72.829 Elevated white blood cell count, unspecified; Z79.899 Other long term (current) drug therapy; Z81.8 Family history of other mental and behavioral disorders; Z98.51 Tubal ligation status; Z90.49 Acquired absence of other specified parts of digestive tract
CPT/HCPCS: 82962; 83036; 83735; 84100; 84439; 84443; 85007; 86592; 87081; J1200; J1630; J2060